=== PATIENT | female | born 1990 | race Hispanic/Latino ===

== ENCOUNTER 2017-09-21 14:19 | Emergency (ER) | payer BC, OTHER ==
--- NOTE | 2017-09-21 14:46 | ED PDOC ---
Arrival/HPI - General Time Seen by Provider: 09/21/17 14:36 Historian: Patient - History of Present Illness Narrative History of Present Illness (Text): 09/21/17 14:42 27yo female with history of kidney stone who present with complaint of crampy/ colicky RUQ abdominal pain with associated nausea, vomiting and diarrhea since this morning. She did not take any medication. Denies fever, chills, urinary symptoms, sick contact, travel, melena, hematemeis, chest pain, SOB, any other complaint. Past Medical History - Provider Review Nursing Documentation Reviewed: Yes - Past History Past History: Non-Contributing - Infectious Disease Hx of Infectious Diseases: None - Tetanus Immunization Tetanus Immunization: Unknown - Cardiac Hx Cardiac Disorders: No Hx Hypertension: No - Pulmonary Hx Respiratory Disorders: No - Neurological Hx Neurological Disorder: No - HEENT Hx HEENT Disorder: No - Renal Hx Renal Disorder: No - Endocrine/Metabolic Hx Endocrine Disorders: No - Hematological/Oncological Hx Blood Disorders: No - Integumentary Hx Dermatological Disorder: No - Musculoskeletal/Rheumatological Hx Musculoskeletal Disorders: No - Gastrointestinal Hx Gastrointestinal Disorders: No - Genitourinary/Gynecological Hx Genitourinary Disorders: Yes Other/Comment: HX of Kidney stones - Psychiatric Hx Depression: No Hx Substance Use: No - Anesthesia Hx Anesthesia: No Hx Anesthesia Reactions: No Hx Malignant Hyperthermia: No - Suicidal Assessment Feels Threatened In Home Enviroment: No Family/Social History - Physician Review Nursing Documentation Reviewed: Yes Family/Social History: Unknown Family HX Smoking Status: Never Smoked Hx Alcohol Use: No Hx Substance Use: No Allergies/Home Meds Allergies/Adverse Reactions: Allergies meperidine HCl [From Demerol] Adverse Reaction (Verified 09/21/17 15:11) DIZZINESS morphine Adverse Reaction (Verified 09/21/17 15:11) DIZZINESS Home Medications: Home Meds Medication Instructions Recorded Confirmed Control Pills 1 tab PO DAILY 09/21/17 Review of Systems - Physician Review All systems were reviewed & negative as marked: Yes - Review of Systems Constitutional: Normal Eyes: Normal ENT: Normal Respiratory: Normal Cardiovascular: Normal Gastrointestinal: Abdominal Pain, Diarrhea, Nausea, Vomiting. absent: Constipation, Hematochezia, Hematemesis Genitourinary Female: Normal Musculoskeletal: Normal Skin: Normal Neurological: Normal Endocrine: Normal Hemo/Lymphatic: Normal Psychiatric: Normal Physical Exam Vital Signs Reviewed: Yes Vital Signs Temp Pulse Resp BP Pulse Ox 09/21/17 18:09 75 18 141/70 100 09/21/17 16:29 78 18 145/76 100 09/21/17 15:01 99.3 F 81 18 148/89 100 Temperature: Afebrile Blood Pressure: Normal Pulse: Regular Respiratory Rate: Normal Appearance: Positive for: Well-Appearing, Non-Toxic, Comfortable Pain Distress: None Mental Status: Positive for: Alert and Oriented X 3 - Systems Exam Head: Present: Atraumatic, Normocephalic Pupils: Present: PERRL Extroacular Muscles: Present: EOMI Conjunctiva: Present: Normal Mouth: Present: Moist Mucous Membranes Neck: Present: Normal Range of Motion Respiratory/Chest: Present: Clear to Auscultation, Good Air Exchange. No: Respiratory Distress, Accessory Muscle Use Cardiovascular: Present: Regular Rate and Rhythm, Normal S1, S2. No: Murmurs Abdomen: Present: Tenderness (RUQ tenderness), Distention (Secondary habitus), Normal Bowel Sounds, Guarding (Voluntary), Other (Soft). No: Peritoneal Signs, Rebound, McBurney's Point Tender, Rovsing's Sign Present Back: Present: Normal Inspection Upper Extremity: Present: Normal Inspection. No: Cyanosis, Edema Lower Extremity: Present: Normal Inspection. No: Edema Neurological: Present: GCS=15, CN II-XII Intact, Speech Normal Skin: Present: Warm, Dry, Normal Color. No: Rashes Psychiatric: Present: Alert, Oriented x 3, Normal Insight, Normal Concentration Medical Decision Making ED Course and Treatment: 09/21/17 19:47 Pt in ED for stated history. Her pain was controlled in ED. Lab was unremarkable. Abdominal/Pelvis CT IMPRESSION: Distended gallbladder, gallstones without secondary findings of acute cholecystitis. Bilateral nonobstructing renal calculi. Result was DW the pt. She was advised to f/u with a surgeon for outpt selective cholecystectomy. She have history of renal colic and sees Dr. Mane. States she have appointment with him next week and was advised to f/u with him. Rx of Tramadol 50mg was given for pain. Advised TRT ED for any worsening symptoms. She expressed understanding of the given instructions. - Lab Interpretations Lab Results: 09/21/17 15:30 09/21/17 15:30 Lab Results 09/21/17 15:30: Sodium 143, Potassium 3.7, Chloride 107, Carbon Dioxide 26, Anion Gap 13, BUN 9, Creatinine 0.7, Est GFR ( Amer) > 60, Est GFR (Non- Af Amer) > 60, Random Glucose 106, Calcium 10.5, Total Bilirubin 0.4, AST 34, ALT 38, Alkaline Phosphatase 95, Total Protein 8.0, Albumin 4.2, Globulin 3.8, Albumin/Globulin Ratio 1.1, Lipase 61 09/21/17 15:30: PT 10.7, INR 0.94, APTT 30.0 09/21/17 15:30: WBC 8.7, RBC 4.38, Hgb 12.3, Hct 37.4, MCV 85.4, MCH 28.1, MCHC 32.9, RDW 14.0, Plt Count 267, MPV 9.3, Gran % 72.4 H, Lymph % (Auto) 22.6, [place] % (Auto) 4.2, Eos % (Auto) 0.5 L, Baso % (Auto) 0.3, Gran # 6.31, Lymph # ( Auto) 2.0, [place] # (Auto) 0.4, Eos # (Auto) 0.0, Baso # (Auto) 0.03 09/21/17 15:00: Urine Color Yellow, Urine Appearance Clear, Urine pH 7.0, Ur Specific Lissie 1.010, Urine Protein Negative, Urine Glucose (UA) Negative, Urine Ketones Negative, Urine Blood Small H, Urine Nitrate Negative, Urine Bilirubin Negative, Urine Urobilinogen 0.2, Ur Leukocyte Esterase Negative, Urine RBC 1 - 3, Urine WBC 1 - 3, Ur Epithelial Cells 3 - 4, Urine Bacteria Few - RAD Interpretation Radiology Orders: 09/21/17 14:40 ABD & PELVIS W/O PO OR IV CONT [CT] Stat - Medication Orders Current Medication Orders: Discontinued Medications Sodium Chloride (Sodium Chloride 0.9%) 1,000 mls @ 999 mls/hr IV .Q1H1M STA Stop: 09/21/17 17:36 Ketorolac Tromethamine (Toradol) 60 mg IM STAT STA Stop: 09/21/17 17:50 Disposition/Present on Arrival - Present on Arrival Any Indicators Present on Arrival: No History of DVT/PE: No History of Uncontrolled Diabetes: No Urinary Catheter: No History Surgical Site Infection Following: None - Disposition Have Diagnosis and Disposition been Completed?: Yes Diagnosis: Renal stone, Gall stone Disposition: HOME/ ROUTINE Disposition Time: 17:45 Patient Plan: Discharge Condition: STABLE Discharge Instructions (ExitCare): Kidney Stones in Adults, Gallstones Additional Instructions: Drink plenty of fluid and avoid fatty meals Follow up with your Urologist/General Surgeon Return to ED for any new or worsening symptoms Prescriptions: traMADol [Ultram] 50 mg PO Q6 #9 tab Referrals: Nayan Randolph MD [Primary Care Provider] - Follow up with primary Mitchell James MD [Staff Provider] - Follow up with primary Forms: ACE (Guyanese)
[2017-09-21 14:49] VITALS: BMI 31.6
[2017-09-21 15:10] VITALS: RESP 18; TEMP 99.3; O2SAT 100
[2017-09-21 15:31] LABS: URINE BILIRUBIN NEGATIVE (NEGATIVE); URINE BLOOD SMALL (NEGATIVE); URINE GLUCOSE (UA) NEGATIVE (NEGATIVE); URINE LEUKOCYTE ESTERASE NEGATIVE Leu/uL (NEGATIVE); URINE PROTEIN NEGATIVE mg/dL (<30 mg/dL); URINE UROBILINOGEN 0.2 E.U./dL (<1 E.U./dL)
[2017-09-21 15:41] LABS: URINE APPEARANCE CLEAR (CLEAR); URINE COLOR YELLOW (YELLOW)
[2017-09-21 15:51] LABS: BASO # 0.03 K/mm3 (0.0-2.0); BASO % 0.3 % (0.0-3.0); EOS % 0.5 % (1.5-5.0); GRAN # 6.31 (1.4-6.5); GRAN % 72.4 % (50.0-68.0); HEMOGLOBIN 12.3 g/dL (12.0-16.0); LYMPH % 22.6 % (22.0-35.0); MEAN CELL VOLUME 85.4 fl (80.0-105.0); MEAN CORPUSCULAR HEMOGLOBIN 28.1 pg (25.0-35.0); MEAN CORPUSCULAR HGB CONC 32.9 g/dl (31.0-37.0); MEAN PLATELET VOLUME 9.3 fl (7.0-11.0); MONO # 0.4 (0.1-0.6); MONO % 4.2 % (1.0-6.0); RBC 4.38 10^6/uL (3.5-6.1); WHITE BLOOD COUNT 8.7 10^3/ul (4.5-11.0)
[2017-09-21 15:54] LABS: URINE BACTERIA FEW (NEG)
[2017-09-21 15:57] LABS: INR 0.94 (0.93-1.08); PROTHROMBIN TIME 10.7 SECONDS (9.4-12.5)
[2017-09-21 16:07] LABS: ALB/GLOB RATIO 1.1 (1.1-1.8); ALBUMIN 4.2 g/dL (3.0-4.8); ALT/SGPT 38 U/L (7-56); AST/SGOT 34 U/L (14-36); BLOOD UREA NITROGEN 9 mg/dL (7-21); CALCIUM 10.5 mg/dL (8.4-10.5); GFR AFRICAN-AMERICAN > 60; GFR NON-AFRICAN AMERICAN > 60; LIPASE 61 U/L (23-300)
[2017-09-21] MEDS ORDERED: Sodium Chloride 0.9% 1,000 ML IV STA (16:36)
--- NOTE | 2017-09-21 16:40 | CT ---
PROCEDURE: CT Abdomen and Pelvis without intravenous contrast HISTORY: RUQ pain COMPARISON: 03/30/2014 TECHNIQUE: Unenhanced study. Neither oral nor intravenous contrast administered. Radiation dose: Total exam DLP = 873.93 mGy-cm. This CT exam was performed using one or more of the following dose reduction techniques: Automated exposure control, adjustment of the mA and/or kV according to patient size, and/or use of iterative reconstruction technique. FINDINGS: LOWER THORAX: Unremarkable. LIVER: Unremarkable. No gross lesion or ductal dilatation. GALLBLADDER AND BILE DUCTS: Distended gallbladder with gallstones. No appreciable gallbladder wall thickening or pericholecystic inflammatory changes. PANCREAS: Unremarkable. No gross lesion or ductal dilatation. SPLEEN: Unremarkable. ADRENALS: Unremarkable. No mass. KIDNEYS AND URETERS: Bilateral nonobstructing renal calculi a. A solitary calculus in the lower pole of the left kidney measures 4 mm. At least 2 calculi neither larger than 5 mm in the right kidney. No evidence of hydronephrosis or hydroureter. VASCULATURE: Unremarkable. No aortic aneurysm. BOWEL: Unremarkable. No obstruction. No gross mural thickening. APPENDIX: Unremarkable. Normal appendix. PERITONEUM: Unremarkable. No free fluid. No free air. LYMPH NODES: Unremarkable. No enlarged lymph nodes. BLADDER: Unremarkable. REPRODUCTIVE: Unremarkable. BONES: No acute fracture. OTHER FINDINGS: None. IMPRESSION: Distended gallbladder, gallstones without secondary findings of acute cholecystitis. Bilateral nonobstructing renal calculi.
[2017-09-21 18:10] VITALS: BP 141/70; PULSE 75
== END 2017-09-21 17:00 | disposition home or self-care (01) ==
LOC: ED 14:19
DX: N20.0 Calculus of kidney (principal); K80.20 Calculus of gallbladder without cholecystitis without obstruction

== ENCOUNTER 2017-09-22 15:06 | Emergency (ER) | payer BC ==
[2017-09-22 15:07] VITALS: BMI 38.9
== END 2017-09-22 17:46 | disposition left against medical advice (07) ==
LOC: ED 15:06
DX: Z02.89 Encounter for other administrative examinations (principal); R10.9 Unspecified abdominal pain

== ENCOUNTER 2017-11-12 17:16 | Emergency (ER) | payer BC ==
[2017-11-12 17:16] VITALS: BMI 38.9
[2017-11-12 17:40] VITALS: BP 126/75; PULSE 75; RESP 19; TEMP 98.9; O2SAT 98
--- NOTE | 2017-11-12 18:09 | ED PDOC ---
Arrival/HPI - General Chief Complaint: Lower Extremity Problem/Injury Time Seen by Provider: 11/12/17 18:04 Historian: Patient - History of Present Illness Narrative History of Present Illness (Text): 11/12/17 18:06 Pt is a 27 yr old F who presents with right lateral knee and left wrist pain s/ p slip and fall on wooden stairs at home 2 days ago. Pt describes using RICE but admits that she used ice and compression for only 1/2 hr the day it happened. Denies head trauma or LOC, shortness of breath, chest pain, neck or back pain,loss of sensation or change in motor control. Time/Duration: < week Symptom Onset: Sudden Symptom Course: Unchanged Quality: Pressure Severity Level: 4 Activities at Onset: Rest Context: Home Past Medical History - Provider Review Nursing Documentation Reviewed: Yes - Travel History Have you recently traveled outside [place] w/in the past 3 mons?: No - Past History Past History: Non-Contributing - Infectious Disease Hx of Infectious Diseases: None - Tetanus Immunization Tetanus Immunization: Unknown - Cardiac Hx Cardiac Disorders: No Hx Hypertension: No - Pulmonary Hx Respiratory Disorders: No - Neurological Hx Neurological Disorder: No - HEENT Hx HEENT Disorder: No - Renal Hx Renal Disorder: No - Endocrine/Metabolic Hx Endocrine Disorders: No - Hematological/Oncological Hx Blood Disorders: No - Integumentary Hx Dermatological Disorder: No - Musculoskeletal/Rheumatological Hx Musculoskeletal Disorders: No - Gastrointestinal Hx Gastrointestinal Disorders: No - Genitourinary/Gynecological Hx Genitourinary Disorders: Yes Other/Comment: HX of Kidney stones - Psychiatric Hx Depression: No Hx Substance Use: No - Surgical History Hx Section: Yes Hx Cholecystectomy: Yes - Anesthesia Hx Anesthesia: Yes Hx Anesthesia Reactions: No Hx Malignant Hyperthermia: No - Suicidal Assessment Feels Threatened In Home Enviroment: No Family/Social History - Physician Review Nursing Documentation Reviewed: Yes Family/Social History: Unknown Family HX Smoking Status: Never Smoked Hx Alcohol Use: No Hx Substance Use: No Allergies/Home Meds Allergies/Adverse Reactions: Allergies meperidine HCl [From Demerol] Adverse Reaction (Verified 11/12/17 17:51) DIZZINESS morphine Adverse Reaction (Verified 11/12/17 17:51) DIZZINESS Home Medications: Home Meds Medication Instructions Recorded Confirmed Control Pills 1 tab PO DAILY 09/21/17 11/12/17 Review of Systems - Review of Systems Constitutional: Normal Eyes: Normal ENT: Normal Respiratory: Normal Cardiovascular: Normal Gastrointestinal: Normal Genitourinary Female: Normal Musculoskeletal: Normal, Joint Swelling (right knee and left wrist) Skin: Normal Neurological: Normal Endocrine: Normal Hemo/Lymphatic: Normal Psychiatric: Normal Physical Exam Vital Signs Reviewed: Yes Vital Signs Temp Pulse Resp BP Pulse Ox 11/12/17 17:16 98.9 F 75 19 126/75 98 Temperature: Afebrile Blood Pressure: Normal Pulse: Regular Respiratory Rate: Normal Appearance: Positive for: Well-Appearing, Non-Toxic, Comfortable Pain Distress: Mild Mental Status: Positive for: Alert and Oriented X 3 - Systems Exam Head: Present: Atraumatic, Normocephalic Neck: Present: Normal Range of Motion Respiratory/Chest: Present: Clear to Auscultation, Good Air Exchange. No: Respiratory Distress, Accessory Muscle Use Cardiovascular: Present: Regular Rate and Rhythm, Normal S1, S2. No: Murmurs Abdomen: No: Tenderness, Distention, Peritoneal Signs Back: Present: Normal Inspection Upper Extremity: Present: Normal Inspection, Normal ROM, NORMAL PULSES, Tenderness (Left wrist). No: Cyanosis, Edema Lower Extremity: Present: Normal Inspection, NORMAL PULSES, Normal ROM, Tenderness (Right lateral knee jt line, suprapatellar). No: Edema, CALF TENDERNESS, Rufus's Sign Neurological: Present: GCS=15, CN II-XII Intact, Speech Normal, Motor Func Grossly Intact, Normal Sensory Function, Normal Cerebellar Funct Skin: Present: Warm, Dry, Normal Color. No: Rashes Psychiatric: Present: Alert, Oriented x 3, Normal Insight, Normal Concentration Medical Decision Making ED Course and Treatment: 11/12/17 18:09 Impression Pt is a 27 yr old F who presents with right lateral knee and left wrist pain s/ p slip and fall on wooden stairs at home 2 days ago. On exam, pt is able to bear weight and walk with slight antalgic gait, passive and active ROM of right knee intact, mild lateral joint line effusion appreciated, no crepitus, anterior or posterior drawer sign, no valgus or verum sign, Plan Right knee w patella XR, left wrist XR Assess and dispo Progress Note 11/12/17 18:38 XRs examined and no fractures or dislocation appreciated on unofficial read Discussed with pt and advised to continue applying ice/cool packs on both jts to reduce inflammation, can use LYNDON wraps for compression x 1-2 days May require some physical therapy for the knee; Pt has Motrin at home; counseled on dose and appropriate use - RAD Interpretation Narrative RAD Interpretations (Text): 11/12/17 18:34 Radiology of the right knee w patella and Left wrist reveal mild jt effusion; no Fx or dislocation appreciated on unofficial read Radiology Orders: 11/12/17 18:04 KNEE W PATELLA RIGHT 3 VIEW [RAD] Stat 11/12/17 18:05 WRIST, LEFT 3 VIEWS [RAD] Stat Disposition/Present on Arrival - Present on Arrival Any Indicators Present on Arrival: Yes History of DVT/PE: No History of Uncontrolled Diabetes: No Urinary Catheter: No History of Decub. Ulcer: No History Surgical Site Infection Following: None - Disposition Have Diagnosis and Disposition been Completed?: Yes Diagnosis: Right knee sprain, Left wrist sprain Disposition: HOME/ ROUTINE Disposition Time: 18:35 Patient Plan: Discharge Patient Problems: Current Active Problems Problem Status Onset Left wrist sprain Acute Right knee sprain Acute Condition: GOOD Discharge Instructions (ExitCare): Wrist Sprain (DC), Knee Sprain (DC) Additional Instructions: Shruti, thank you for letting us take care of you today. Your provider was CHARLY Ellis. You were treated for a right knee and left wrist sprain. The emergency medical care you received today was directed at your acute symptoms. If you were prescribed any medication, please fill it and take as directed. It may take several days for your symptoms to resolve. Return to the Emergency Department if your symptoms worsen, do not improve, or if you have any other problems. Please contact your doctor or call one of the physicians/clinics you have been referred to that are listed on the Patient Visit Information form that is included in your discharge packet. Bring any paperwork you were given at discharge with you along with any medications you are taking to your follow up visit. Our treatment cannot replace ongoing medical care by a primary care provider (PCP) outside of the emergency department. Thank you for allowing the [email or web address] team to be part of your care today. If you had an X-Ray or CT scan: A Radiologist will review the ED reading if any change in treatment is needed we will contact you. Referrals: Nayan Randolph MD [Primary Care Provider] - Follow up with primary Forms: Gust (Gibraltarian)
--- NOTE | 2017-11-13 09:42 | RAD ---
PROCEDURE: Left Wrist Radiographs. HISTORY: Fall COMPARISON: None. FINDINGS: BONES: Normal. No fracture. JOINTS: Normal. No dislocation. SOFT TISSUES: Normal. OTHER FINDINGS: None. IMPRESSION: Normal left wrist radiographs.
--- NOTE | 2017-11-13 09:44 | RAD ---
PROCEDURE: Right Knee Radiographs. HISTORY: Fall COMPARISON: None. FINDINGS: BONES: Three views were performed of the right knee. No fracture is seen. No lytic process is noted. Patella is normal location. No focal osteochondral defect or loose body is identified. JOINTS: Normal. No osteoarthritis. JOINT EFFUSION: None. OTHER FINDINGS: None. IMPRESSION: No fracture. No joint effusion.
== END 2017-11-12 19:00 | disposition home or self-care (01) ==
LOC: ED 17:16
DX: S63.502A Unspecified sprain of left wrist, initial encounter (principal); S83.91XA Sprain of unspecified site of right knee, initial encounter; W01.0XXA Fall on same level from slipping, tripping and stumbling without subsequent striking against object, initial encounter